=== PATIENT | female | born 1970 | race African-American/Black ===

== ENCOUNTER 2016-12-16 14:58 | Inpatient (IN) | payer OTHER ==
[2016-12-16 15:09] VITALS: BMI 22.3
[2016-12-16 15:28] LABS: BASOPHIL 0.3 % (0-2.0); EOSINOPHIL 0.1 % (0-4.5); MCH 29.7 pg (25.7-33.7); MCHC 32.7 g/dl (32.0-36.0); MEAN CELL VOLUME 90.6 fl (80-96); MEAN PLT VOLUME 9.2 fl (7.5-11.1); PLATELET COUNT 285 K/MM3 (134-434); WHITE BLOOD COUNT 5.8 K/mm3 (4.0-10.0)
--- NOTE | 2016-12-16 15:39 | PDOC ---
History of Present Illness - General Chief Complaint: Palpitations Stated Complaint: Irregular Heart RATE Time Seen by Provider: 12/16/16 15:10 - History of Present Illness Initial Comments: 12/16/16 15:34 46 yo F with h/o GERD who presents with tachycardia. Pt. reports attending [facility] appointment with Dr.Frederick Emery for scheduled colonoscopy. Following administration of anesthetic at 1300 she experienced elevated HR of 200's, and EKG at [facility] revealed A-fib w/ RVR. She did not undergo colonoscopy. Received Ranitidine and Atenolol at outpatient GI. Also endorses experiencing palpitations following sedation. States that she can feel "heart pounding in chest." Endorses recurrent lightheaded spells for the past four weeks with no triggers or alleviating symptoms. lightheadedness is usually transient, 3-4 times/week, lasting minutes , and resolves spontaneously. Accompanied with nausea. Patient endorses oral bowel prep/Miralax at 1600 ( 12/15/16) prior to colonoscopy, with subsequent clear liquid diet. + single episode of clear, non bloody, emesis and diarrhea following bowel prep. Reports seeing PCP Dr. Christensen and receiving Ranitidine with follow up at [facility] for outpatient colonoscopy. Denies any associated chest pain, vomiting, fevers/chills, SOB, leg swelling, abdominal pain. Denies h/o afib, palpitations, or tachycardia. Past History - Past Medical History Allergies/Adverse Reactions: Allergies Allergy/AdvReac Type Severity Reaction Status Date / Time Penicillins Allergy Verified 12/16/16 15:08 Home Medications: Ambulatory Orders Doxycycline Hyclate [Targadox] 50 mg PO BID 12/16/16 Famotidine [Pepcid] 20 mg PO BID 12/16/16 GI Disorders: Yes (GERD) - Surgical History Appendectomy: Yes - Psycho/Social/Smoking Cessation Hx Suicidal Ideation: No Smoking History: Current every day smoker Number of Cigarettes Smoked Daily: 5 Information on smoking cessation initiated: No Review of Systems - Review of Systems Comments:: 12/16/16 16:44 GENERAL/CONSTITUTIONAL: No fever or chills. No weakness. HEAD, EYES, EARS, NOSE AND THROAT: No change in vision. No ear pain or discharge. No sore throat. CARDIOVASCULAR: +Palpitations. No chest pain or shortness of breath RESPIRATORY: No cough, wheezing, or hemoptysis. GASTROINTESTINAL: No nausea, vomiting, diarrhea or constipation. GENITOURINARY: No dysuria, frequency, or change in urination. MUSCULOSKELETAL: No joint or muscle swelling or pain. No neck or back pain. SKIN: No rash NEUROLOGIC: No headache, vertigo, loss of consciousness, or change in strength/ sensation. ENDOCRINE: No increased thirst. No abnormal weight change HEMATOLOGIC/LYMPHATIC: No anemia, easy bleeding, or history of blood clots. ALLERGIC/IMMUNOLOGIC: No hives or skin allergy *Physical Exam - Vital Signs Last Vital Signs Temp Pulse Resp BP Pulse Ox 97.8 F 90 16 129/68 97 12/17/16 15:00 12/17/16 15:00 12/17/16 15:00 12/17/16 15:00 12/17/16 09:00 - Physical Exam Comments: 12/16/16 16:45 GENERAL: Awake, alert, and fully oriented, in no acute distress HEAD: No signs of trauma, normocephalic, atraumatic EYES: PERRLA, EOMI, sclera anicteric, conjunctiva clear ENT: Auricles normal inspection, hearing grossly normal, nares patent, oropharynx clear without exudates. Moist mucosa NECK: Normal ROM, supple, no lymphadenopathy, JVD, or masses LUNGS: No distress, speaks full sentences, clear to auscultation bilaterally HEART: Irregular rate and rhtyhm, normal S1 and S2, no murmurs, rubs or gallops , peripheral pulses normal and equal bilaterally. ABDOMEN: Soft, nontender, normoactive bowel sounds. No guarding, no rebound. No masses EXTREMITIES: Normal inspection, Normal range of motion, no edema. No clubbing or cyanosis. NEUROLOGICAL: :Pt. is tremulous. Cranial nerves II through XII grossly intact. Normal speech, normal gait, no focal sensorimotor deficits SKIN: Warm, Dry, normal turgor, no rashes or lesions noted. Heart Score/ECG Review - History History: Slightly suspicious - Electrocardiogram EKG: Non specific repolarization disturbance - Age Age: 45-65 - Risk Factors Risk Factors Heart Score: No Hx Hypercholesterolemia, No Hx Hypertension, No Hx Diabetes, Yes Smoking History, Yes Positive family hx of cardiac disease, No Hx Obesity Based on the list above the patient has:: 1-2 risk factors - Troponin Troponin: 1-3x normal limit - Score Heart Score - Total: 4 - ECG Intrepretation Rhythm: Irregularly Irregular - [place]: Normal - P and ME Delta Wave(s) Present: No WPW: No - QRS Q Wave Present: No - ST and T Early Repolarization: No Non Specific ST-T Wave changes: Yes - ECG Impressions Normal ECG: No Non-specific ST Elevation: No Tachycardia: Afib w/rapid Vent rate Torsades mahnaz Pointes: No WPW: No ED Treatment Course - LABORATORY CBC & Chemistry Diagram: 12/17/16 06:05 12/17/16 06:05 - ADDITIONAL ORDERS Additional order review: 12/16/16 15:20 RBC 4.10 MCV 90.6 MCHC 32.7 RDW 13.0 MPV 9.2 Neutrophils % 38.0 L Lymphocytes % 49.2 H Monocytes % 12.4 H Eosinophils % 0.1 Basophils % 0.3 - RADIOLOGY Radiology Studies Ordered: Category Date Time Status CXRPORT [CHEST X-RAY PORTABLE*] [RAD] Stat Radiology 12/16/16 15:53 Completed - Medications Given in the ED: ED Medications Discontinued Medications Generic Name Dose Route Start Last Admin Trade Name Freq PRN Reason Stop Dose Admin Aspirin 325 mg 12/16/16 17:07 12/16/16 17:13 Ecotrin - PO 12/16/16 17:08 325 mg ONCE ONE Administration Sodium Chloride 1,000 mls @ 1,000 mls/hr 12/16/16 16:31 12/16/16 16:40 Normal Saline - IV 12/16/16 17:30 1,000 mls/hr ASDIR STA Administration Sodium Chloride 1,000 mls @ 1,000 mls/hr 12/16/16 17:03 12/16/16 17:05 Normal Saline - IV 12/16/16 18:02 1,000 mls/hr ASDIR STA Administration Sodium Chloride 1,000 mls @ 100 mls/hr 12/16/16 20:45 12/17/16 09:06 Normal Saline - IV 100 mls/hr ASDIR ARNULFO Administration Methimazole 20 mg 12/17/16 10:00 12/17/16 09:04 Tapazole - PO 20 mg BID ARNULFO Administration Metoprolol Tartrate 25 mg 12/16/16 18:27 12/16/16 18:41 Lopressor - PO 12/16/16 18:28 25 mg ONCE ONE Administration Metoprolol Tartrate 5 mg 12/16/16 18:27 12/16/16 18:41 Lopressor Injection - IVPUSH 12/16/16 18:28 5 mg ONCE ONE Administration Propranolol HCl 40 mg 12/16/16 22:00 12/17/16 09:04 Inderal - PO 40 mg BID ARNULFO Administration Medical Decision Making - Medical Decision Making 12/16/16 15:58 46 yo F with h/o GERD who presents with tachycardia. Recent episode of A-fib with RVR in setting of colonoscopy pre-op with Dr. Deangelo Emery at [facility]. Following administration of anesthetic at 1300 she experienced elevated HR of 200's, with subsequent afib with rapid ventricular rate confirmed on EKG. Did not undergo colonoscopy. Received Adenosine and Atenolol. Has been experiencing transient, and recurrent palpitations, lightheadedness for past 4 weeks. Physical exam reveals irregular rhythm. HR (106-150) Reports vomiting and diarrhea following PO intake of bowel prep/mirilax at 1600 ( 12/16/16) night prior to colonoscopy. DDx: A-fib, dehydration, A-flutter ACS/HI ED Course: EKG: Afib with rvr ( 121), and t wave depression in inferior and anterolateral leads. CBC, CMP, Trop, BNP, PT/INR, APTT UA CXR NS 1 L 12/16/16 16:25 Trop-0.06 12/16/16 16:36 Heart Score: 4, 13 % risk MACE 12/16/16 16:39 INR-1.19 325 mg ASA Admit to Dr. Palmer Inpatient HR 106-140 Lopressor IV 5 mg, Lopressor 25 mg PO *DC/Admit/Observation/Transfer Diagnosis at time of Disposition: Atrial fibrillation with rapid ventricular response, Palpitations - Discharge Dispostion Admit: Yes - Attestations Physician Attestion: 12/16/16 16:46 I, Dr. Fabian Finney, attest that this document has been prepared under my direction and personally reviewed by me in its entirety. I further attest, that it accurately reflects all work, treatment, procedures and medical decision -making performed by me.
[2016-12-16 15:53] LABS: TROPONIN I 0.06 ng/ml (0.00-0.05)
[2016-12-16 16:01] LABS: ALBUMIN 3.3 g/dl (3.4-5.0); ANION GAP 10 (8-16); CALCIUM 10.4 mg/dL (8.5-10.1); CO2 24 mmol/L (21-32); CREATININE 0.4 mg/dL (0.55-1.02); GLUCOSE,RANDOM 118 mg/dL (74-106); SGPT/ALT 62 U/L (12-78)
[2016-12-16 16:02] LABS: ALK PHOS 121 U/L (45-117); BILIRUBIN,TOTAL 0.5 mg/dL (0.2-1.0); TOT PROT 6.4 g/dl (6.4-8.2)
[2016-12-16 16:05] LABS: SGOT/AST 54 U/L (15-37)
[2016-12-16 16:06] LABS: CPK 103 IU/L (26-192)
[2016-12-16 16:31] LABS: INR 1.19 (0.82-1.09); PROTHROMBIN TIME (PATIENT) 13.1 SEC (9.98-11.88)
[2016-12-16] MEDS ORDERED: SODIUM CHLORIDE 1,000 ML IV STA ×2 (16:31→17:03)
--- NOTE | 2016-12-16 16:32 | PDOC ---
Attending Attestation - Resident Resident Name: Fabian Finney - [facility] HPI: 12/16/16 16:28 The patient is a 46 year old female, with a significant past medical history of GERD, who presents to the emergency department s/p elevated HR during colonoscopy. The patient was scheduled for a colonoscopy with , which was never performed secondary to elevated HR to 203 after the anesthesia was given. Her only symptom at the time was palpitations. At that point, she was given adenosine and then atenolol and told to come to the ED for further management. Last night, patient reports she completed the prep for the colonoscopy and had innumerable loose NB bowel movements overnight.. She denies recent fevers, chills, headache or dizziness. She denies recent nausea, vomit, diarrhea or constipation. She denies recent dysuria, frequency, urgency or hematuria. She denies chest pain or shortness of breath. Allergies: NKA Past surgical history: None reported. Social history: Nonsmoker. Denies EtOH use and recreational drug use. - Physicial Exam PE: 12/16/16 16:28 GENERAL/CONSTITUTIONAL: No fever or chills. No weakness. HEAD, EYES, EARS, NOSE AND THROAT: No change in vision. No ear pain or discharge. No sore throat. CARDIOVASCULAR: +elevated HR. + palpitationsNo chest pain or shortness of breath. RESPIRATORY: No cough, wheezing, or hemoptysis. GASTROINTESTINAL: No nausea, vomiting, diarrhea or constipation. GENITOURINARY: No dysuria, frequency, or change in urination. MUSCULOSKELETAL: No joint or muscle swelling or pain. No neck or back pain. SKIN: No rash NEUROLOGIC: No headache, vertigo, loss of consciousness, or change in strength/ sensation. ENDOCRINE: No increased thirst. No abnormal weight change. HEMATOLOGIC/LYMPHATIC: No anemia, easy bleeding, or history of blood clots. ALLERGIC/IMMUNOLOGIC: No hives or skin allergy. - Medical Decision Making 12/16/16 16:28 46-year-old female who denies significant past medical history presents in A. fib/A flutter with a rate of 203 after receiving anesthesia for her colonoscopy. The patient was given adenosine and atenolol by her report at the GI office and then told to come to the emergency department for further management. The patient she is in A. fib with a rate between 100s -120s. Likely etiology is fluid shifts and/or dehydration from the colonoscopy prep. Will rehydrate patient and monitor. Patient may need admission for monitoring. -labs -cxr -ivf -monitor -call PMD 12/16/16 17:26 Labs remarkable for small troponin leak of 0.06, likely demand in the setting of tachycardia. Patient is receiving liter #2, currently heart rate continues to range between the high 90s and the 120s. If heart rate does not respond to 2 L of fluid, will consider IV metoprolol if blood pressure permits. Will admit to hospital for further monitoring and trending of troponins.
[2016-12-16] MEDS ORDERED: ASPIRIN 325 MG ENTERIC COATED TABLET (FP) PO ONE (17:07)
[2016-12-16] MEDS ORDERED: ASPIRIN 325 MG ENTERIC COATED TABLET (FP) ONE (17:13)
[2016-12-16 17:17] LABS: URINE APPEARANCE SLCLOUDY; URINE BILIRUBIN NEGATIVE (NEGATIVE); URINE BLOOD NEGATIVE (NEGATIVE); URINE COLOR YELLOW; URINE GLUCOSE (UA) NEGATIVE (NEGATIVE); URINE KETONE NEGATIVE (NEGATIVE); URINE LEUK ESTERASE NEGATIVE (NEGATIVE); URINE NITRITE NEGATIVE (NEGATIVE); URINE PROTEIN NEGATIVE (NEGATIVE); URINE UROBILINOGEN NEGATIVE mg/dL (0.2-1.0)
--- NOTE | 2016-12-16 17:34 | CON.CARD ---
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 Last week she had an endoscopy without incident. Today (12/16/16) she was to have a colonoscopy. She completed her prep and received an anesthetic and then went into rapid afib at 200 BPM. EKG shows rapid afib at 121 BPM with normal QRS intervals, normal QRS axis and NSSTTW changes. [id number] Score = 1 (female) - Smoking History Smoking history: Current every day smoker Aproximately how many cigarettes per day: 5 Home Medications - Allergies Allergies/Adverse Reactions: Allergies Allergy/AdvReac Type Severity Reaction Status Date / Time Penicillins Allergy Verified 12/16/16 15:08 - Home Medications Home Medications: Ambulatory Orders Famotidine [Pepcid] 20 mg PO BID 12/16/16 Review of Systems Unable to obtain ROS, reason: As per HPI Vital Signs: Vital Signs Temperature Pulse Rate 120 H 12/16/16 15:59 Respiratory Rate 22 12/16/16 15:59 Blood Pressure 108/64 12/16/16 15:59 O2 Sat by Pulse Oximetry (%) 100 12/16/16 15:59 Constitutional: Yes: No Distress HENT: Yes: Other (? 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 Today (12/16/16) she was to have a colonoscopy. She completed her prep and received an anesthetic and then went into rapid afib at 200 BPM. EKG shows rapid afib at 121 BPM with normal QRS intervals, normal QRS axis and NSSTTW changes. [id number] Score = 1 (female) New onset AFIB No need to AC given the low [id number] Score, would given aspirin 325 mg daily Obtain TFT's Obtain an echocardiogram Admit to telem Would rate control with metoprolol tartrate 25 mg PO Q12h Bp is 108/64 mmHg and would hole if BP is less than 100 mmHg systolic If she has not spontaneously converted to NSR by tomorrow, will consider transferring to [facility] for cardioversion.
--- NOTE | 2016-12-16 17:43 | HP ---
Admitting History and Physical - Admission Chief Complaint: Afib with RVR History of Present Illness: 46 yr old woman with GERD, history of gastric ulcer referred by Dr. Emery for rapid afib with RVR post-anesthesia during preparation for scheduled colonoscopy. Following anesthesia (patient described it as white and milky, likely propofol) HR increased to 200's, EKG at the time reported as A-fib with RVR to ED. Last night during bowel prep with miralax and colace she had multiple bowel movement and episodes of vomiting. Also endorses unintentional weightloss in past few months. Sees her doctor regularly for physicals with no reports of abnormal EKG's or lab work. denies hx of thyroid dysfunction in self, HTN, DM, cardiac hx, difficulty swallowing, sob, chest pain, abdominal pain, changes in vision, diplopia. Patient has had anesthesia in the past for appendectomy and knee replacement with no adverse reaction to anesthesia.Underwent endoscopy last week with the same Anesthesiologist, in the same location and anesthesia without any adverse event, was told the endoscopy was normal with the gastric ulcer now healed. She had changed her diet to a bland diet for past few months for the ulcer. fmhx: cousin had a thyroidectomy as a child. History Source: Patient Limitations to Obtaining History: No Limitations - Smoking History Smoking history: Current every day smoker Aproximately how many cigarettes per day: 5 Home Medications - Allergies Allergies/Adverse Reactions: Allergies Allergy/AdvReac Type Severity Reaction Status Date / Time Penicillins Allergy Verified 12/16/16 15:08 - Home Medications Home Medications: Ambulatory Orders Famotidine [Pepcid] 20 mg PO BID 12/16/16 Review of Systems - Review of Systems Constitutional: reports: Loss of Appetite Eyes: denies: Eye Pain, Recent Change in Vision HENT: denies: Difficult Swallowing Neck: denies: Decreased ROM, Pain on Movement, Tenderness Cardiovascular: denies: Chest Pain Respiratory: denies: Cough, SOB Gastrointestinal: denies: Abdominal Pain Endocrine: reports: Unexplained Weight Loss Physical Examination Vital Signs: Vital Signs Temperature Pulse Rate 120 H 12/16/16 15:59 Respiratory Rate 22 12/16/16 15:59 Blood Pressure 108/64 12/16/16 15:59 O2 Sat by Pulse Oximetry (%) 100 12/16/16 15:59 Constitutional: Yes: Anxious Eyes: Yes: Conjunctiva Clear, EOM Intact, Other (right eye upper lateral eyelid with swelling, no erythema/discharge. b/l proptosis) HENT: Yes: Atraumatic, Normocephalic Neck: Yes: Supple, Trachea Midline, Thyromegaly. No: Decreased ROM, Tenderness Cardiovascular: Yes: Tachycardia, Pulse Irregular, S1, S2. No: Murmur Respiratory: Yes: Regular, CTA Bilaterally. No: Cough Gastrointestinal: Yes: Normal Bowel Sounds, Soft Extremities: Yes: Other (mild tremor with stretched hands) Edema: No Peripheral Pulses WNL: Yes Neurological: Yes: Alert, Oriented, Cran Nerves II-XII Intact. No: Facial Droop Psychiatric: Yes: Alert, Oriented Labs: CBC, BMP 12/16/16 15:20 12/16/16 15:20 Assessment/Plan 46 yr old woman with history of gastric ulcer, GERD, presents in afib with RVR post-anesthesia, with TSH level <.01, concern for thyroid dysfunction. #Afib with RVR - repeat Trops, lipid profile, echo in the AM to r/o ACS, tele monitoring and repeat EKG in the AM - likely from thyroid dysfunction given low TSH, pending T3 and T4 - propranolol 40mg po bid changed from metoprolol - IVF NS @100cc/hr for hydration given NPO status and bowel prep last night #thyroid dysfunction - given thyromegaly, weightloss, tachycardia - TSH level <.01, pending T3 and T4 - may need endocrine consult and thyroid u/s #GERD - ranitidine 150mg po daily DVT 5000 units heparin SQ BID diet: regular Visit type - Emergency Visit Emergency Visit: Yes ED Registration Date: 12/16/16 Care time: The patient presented to the Emergency Department on the above date and was hospitalized for further evaluation of their emergent condition. - New Patient This patient is new to me today: Yes Date on this admission: 12/16/16 - Critical Care Critical Care patient: No
[2016-12-16] MEDS ORDERED: METOPROLOL TARTRATE 5 MG/5 ML VIAL IVPUSH PRN (18:12)
[2016-12-16] MEDS ORDERED: METOPROLOL TARTRATE 5 MG/5 ML VIAL IVPUSH ONE (18:27)
[2016-12-16] MEDS ORDERED: METOPROLOL TARTRATE 25 MG TABLET (FP) PO ONE (18:27)
--- NOTE | 2016-12-16 18:28 | HP ---
CHIEF COMPLAINT: Tachycardia PCP: Unsure HISTORY OF PRESENT ILLNESS: 46 year old F with pmh of GERD presented to the ED with tachycardia. Patient was at her GI's office for a routine colonoscopy. Patient was given anaesthetic and found to be tachycardic to the 200's. Patient unsure what anaesthetic was given, but was confident it was a white colored fluid. Patient has a 2 month history of GERD. She takes pepcid with minimal relief. She underwent an endoscopy, which she was told was normal. She states that she has lost 7-10 lbs this week. Patient wants to go home immediately. Patient has no cardiac history and has never been worked up for cardiac disease in the past. ER course was notable for: (1)CXR- (2)Labs (3)EKG- Afib Recent Travel: denies PAST MEDICAL HISTORY: GERD PAST SURGICAL HISTORY: Appendectomy and knee surgery- no issues with anaesthetic during these procedures Social History: Smoking: Patient quit smoking 1 week ago. Only smoked <1 cigarettes per day Alcohol: 1 drink/month Drugs: Denies Family History: Allergies Penicillins Allergy (Verified 12/16/16 15:08) HOME MEDICATIONS: Home Medications Medication Instructions Recorded Famotidine [Pepcid] 20 mg PO BID 12/16/16 REVIEW OF SYSTEMS CONSTITUTIONAL: Absent: fever, chills, diaphoresis, generalized weakness, malaise, loss of appetite, weight change HEENT: Absent: rhinorrhea, nasal congestion, throat pain, throat swelling, difficulty swallowing, mouth swelling, ear pain, eye pain, visual changes CARDIOVASCULAR: Absent: chest pain, syncope, palpitations, irregular heart rate, lightheadedness , peripheral edema RESPIRATORY: Absent: cough, shortness of breath, dyspnea with exertion, orthopnea, wheezing, stridor, hemoptysis GASTROINTESTINAL: Absent: abdominal pain, abdominal distension, nausea, vomiting, diarrhea, constipation, melena, hematochezia GENITOURINARY: Absent: dysuria, frequency, urgency, hesitancy, hematuria, flank pain, genital pain MUSCULOSKELETAL: Absent: myalgia, arthralgia, joint swelling, back pain, neck pain SKIN: Absent: rash, itching, pallor HEMATOLOGIC/IMMUNOLOGIC: Absent: easy bleeding, easy bruising, lymphadenopathy, frequent infections ENDOCRINE: Absent: unexplained weight gain, unexplained weight loss, heat intolerance, cold intolerance NEUROLOGIC: Absent: headache, focal weakness or paresthesias, dizziness, unsteady gait, seizure, mental status changes, bladder or bowel incontinence PSYCHIATRIC: Absent: anxiety, depression, suicidal or homicidal ideation, hallucinations. PHYSICAL EXAMINATION Vital Signs - 24 hr 12/16/16 12/16/16 12/16/16 15:06 15:36 15:59 Pulse Rate 140 H Pulse Rate [ 124 H 120 H Apical] Respiratory 20 20 22 Rate Blood Pressure 148/90 Blood Pressure 149/90 108/64 [Right Arm] O2 Sat by Pulse 99 98 100 Oximetry (%) 12/16/16 18:10 Pulse Rate Pulse Rate [ 114 H Apical] Respiratory 18 Rate Blood Pressure Blood Pressure 120/65 [Right Arm] O2 Sat by Pulse 96 Oximetry (%) GENERAL: Awake, alert, and fully oriented, in no acute distress. Patient is anxious/tremulous HEAD: Normal with no signs of trauma. EYES: Pupils equal, round and reactive to light, extraocular movements intact, sclera anicteric, conjunctiva clear. + proptosis EARS, NOSE, THROAT: Ears normal, nares patent, oropharynx clear without exudates. Moist mucous membranes. NECK: Normal range of motion, supple without lymphadenopathy, JVD, or masses. + thyromegaly LUNGS: Breath sounds equal, clear to auscultation bilaterally. No wheezes, and no crackles. No accessory muscle use. HEART: Irregularly Irregular, normal S1 and S2 without murmur, rub or gallop. ABDOMEN: Soft, nontender, not distended, normoactive bowel sounds, no guarding, no rebound, no masses. No hepatomegaly or splenomegaly. MUSCULOSKELETAL: Normal range of motion at all joints. No bony deformities or tenderness. No CVA tenderness. UPPER EXTREMITIES: 2+ pulses, warm, well-perfused. No cyanosis. No clubbing. No peripheral edema. LOWER EXTREMITIES: 2+ pulses, warm, well-perfused. No calf tenderness. No peripheral edema. NEUROLOGICAL: Cranial nerves II-XII intact. Normal speech. Normal gait. PSYCHIATRIC: Cooperative. Good eye contact. Appropriate mood and affect. SKIN: Warm, dry, normal turgor, no rashes or lesions noted, normal capillary refill. Laboratory Results - last 24 hr 12/16/16 12/16/16 12/16/16 15:12 15:20 15:20 WBC 5.8 RBC 4.10 Hgb 12.2 Hct 37.2 MCV 90.6 MCH 29.7 MCHC 32.7 RDW 13.0 Plt Count 285 MPV 9.2 Neutrophils % 38.0 L Lymphocytes % 49.2 H Monocytes % 12.4 H Eosinophils % 0.1 Basophils % 0.3 INR 1.19 H PTT (Actin FS) Sodium Cancelled Potassium Cancelled Chloride Cancelled Carbon Dioxide Cancelled Anion Gap Cancelled BUN Cancelled Creatinine Cancelled Creat Clearance w eGFR Cancelled Random Glucose Cancelled Calcium Cancelled Total Bilirubin Cancelled AST Cancelled ALT Cancelled Alkaline Phosphatase Cancelled Creatine Kinase Troponin I Total Protein Cancelled Albumin Cancelled Urine Color Urine Appearance Urine pH Urine Protein Urine Glucose (UA) Urine Ketones Urine Blood Urine Nitrite Urine Bilirubin Urine Urobilinogen Ur Leukocyte Esterase 12/16/16 12/16/16 12/16/16 15:20 15:20 17:00 WBC RBC Hgb Hct MCV MCH MCHC RDW Plt Count MPV Neutrophils % Lymphocytes % Monocytes % Eosinophils % Basophils % INR PTT (Actin FS) 32.9 Sodium 141 Potassium 4.6 Chloride 107 Carbon Dioxide 24 Anion Gap 10 BUN 15 Creatinine 0.4 L Creat Clearance w eGFR > 60 Random Glucose 118 H Calcium 10.4 H Total Bilirubin 0.5 AST 54 H ALT 62 Alkaline Phosphatase 121 H Creatine Kinase 103 Troponin I 0.06 H Total Protein 6.4 Albumin 3.3 L Urine Color Yellow Urine Appearance Slcloudy Urine pH 5.0 Urine Protein Negative Urine Glucose (UA) Negative Urine Ketones Negative Urine Blood Negative Urine Nitrite Negative Urine Bilirubin Negative Urine Urobilinogen Negative Ur Leukocyte Esterase Negative ASSESSMENT/PLAN: 46 year old F with pmh of GERD presented to the ER from GI clinic for tachycardia and new onset atrial fibrillation. #Atrial Fibrillation with RVR- 2/2 to dehydration vs hypothyroidism Patient admitted to telemetry [employer] Patient received adenosine and atenolol at GI clinic Start metoprolol IV 5 mg PRN for HR control (<120) Echo pending TSH ordered Troponin elevated. Repeat ordered Cardiology consulted, Dr. Holguin #Thyromegaly TSH pending Will f/u #GERD Ranitdine 150 mg PO daily #ppx DVT- Heparin 5000 units sq BID GI- Ranitidine 150 mg PO daily Visit type - Emergency Visit Emergency Visit: Yes ED Registration Date: 12/16/16 Care time: The patient presented to the Emergency Department on the above date and was hospitalized for further evaluation of their emergent condition. - New Patient This patient is new to me today: Yes Date on this admission: 12/16/16 - Critical Care Critical Care patient: No
--- NOTE | 2016-12-16 18:32 | PN ---
Teaching Attending Note Name of Resident: Pedro White ATTENDING PHYSICIAN STATEMENT I saw and evaluated the patient. I reviewed the resident's note and discussed the case with the resident. I agree with the resident's findings and plan as documented. SUBJECTIVE:46yo F sent from GI office when found to be tachycardic to 200's. pt was going for routine colonoscopy and received anesthesia (describes it as white fluid in the syringe) and then found to be tachycardic. states she completed her bowel prep yesterday and was having copious amounts of loose BM to the point she was "pooping water". pt currently is asymptomatic and wants to go home. states she been having GERD-like symptoms for 2 months was started on pepcid with some relief. Underwent EGD last week and was told it was normal. admits to 7-10lbs weight loss this week. denies CP, palpitations, SOB, fever, chills, recent infections, heat/cold intolerance, hair loss, dysphagia or odynophagia or anxiety. no medication use other than pepcid (OTC or herbal medicatioN) no weight loss supplements quit smoking tobacco last week but states she was only a "social smoker" who never completed a full cigarette never had cardiac workup in the past states her thyroid was checked last month and was normal drinks 1 glass/wine per month denies THC, cocaine or illegal substance use. OBJECTIVE: Last Vital Signs Temp Pulse Resp BP Pulse Ox 120 H 22 108/64 100 12/16/16 15:59 12/16/16 15:59 12/16/16 15:59 12/16/16 15:59 General mildly anxious HEENT + mild proptosis +thyromegaly, moves with degluttation, no nodules CV S1 S2 irregular irregular, tachy Lungs CTA B/L no wheezing/rales/rhonchi ABdomen soft NT/ND Extremities no pedal edema, skin on arms are smooth and hairless ASSESSMENT AND PLAN: 46yo F with PMH GERD sent to the ER after found to be in afib with RVR 1. Afib with RVR- tele admission. likely induced from dehydration however concern for hyperthyroid given clinical signs. continuous cardiac monitoring. received adenosine and atenolol in the GI office. HR currently 100-115 on the monitor after IVF. will give metoprolol IVP prn for HR >120. check echo, TSH. cardio eval. [id number] 1- does not require anticoagulation at this time. trend cardiac enzymes, serial ekgs. 2. thyromegaly- appreciated on my exam. awaiting TSH level. if normal will need thyroid u/s as outpatient 3. GERD- cont pepcid 4. DVT ppx- EAM
[2016-12-16] MEDS ORDERED: METOPROLOL TARTRATE 5 MG/5 ML VIAL ONE (18:37)
[2016-12-16] MEDS ORDERED: METOPROLOL TARTRATE 25 MG TABLET (FP) ONE (18:37)
[2016-12-16] MEDS: HEPARIN NA (PORCINE) 5,000 UNITS/ML 1ML VIAL SQ SCH (22:20)
[2016-12-16] MEDS: PROPRANOLOL HCL 40 MG TABLET PO SCH (22:20)
[2016-12-16] MEDS: SODIUM CHLORIDE 1,000 ML IV SCH (22:39)
[2016-12-16 23:08] LABS: CHOLESTEROL 103 mg/dL (50-200); LDL CHOLESTEROL (ONLY SJRH) 52 mg/dL (5-100)
[2016-12-17 07:58] LABS: BASOPHIL 0.3 % (0-2.0); MCH 29.5 pg (25.7-33.7); MCHC 32.7 g/dl (32.0-36.0); MEAN CELL VOLUME 90.3 fl (80-96); MEAN PLT VOLUME 9.3 fl (7.5-11.1); NEUTROPHILS 31.4 % (42.8-82.8); PLATELET COUNT 241 K/MM3 (134-434); RDW 13.2 % (11.6-15.6); WHITE BLOOD COUNT 5.2 K/mm3 (4.0-10.0)
[2016-12-17] MEDS: PROPRANOLOL HCL 40 MG TABLET PO SCH (09:04)
[2016-12-17] MEDS: HEPARIN NA (PORCINE) 5,000 UNITS/ML 1ML VIAL SQ SCH ×2 (09:04→21:37)
[2016-12-17] MEDS: RANITIDINE HCL 150 MG TABLET (FP) PO SCH (09:05)
[2016-12-17] MEDS: SODIUM CHLORIDE 1,000 ML IV SCH (09:06)
[2016-12-17] MEDS ORDERED: METHIMAZOLE 10 MG TABLET (FP) PO SCH (10:00)
[2016-12-17 10:05] LABS: ALBUMIN 3.3 g/dl (3.4-5.0); BILIRUBIN,TOTAL 0.5 mg/dL (0.2-1.0); CALCIUM 10.3 mg/dL (8.5-10.1); CREATININE 0.3 mg/dL (0.55-1.02); GLUCOSE,RANDOM 82 mg/dL (74-106); SGOT/AST 92 U/L (15-37); THYROID STIMULATING HORMONE < 0.01 uIU/ml (0.358-3.74); TOT PROT 5.9 g/dl (6.4-8.2)
[2016-12-17 10:45] LABS: ALK PHOS 128 U/L (45-117); ANION GAP 8 (8-16); CO2 22 mmol/L (21-32); SGPT/ALT 96 U/L (12-78)
--- NOTE | 2016-12-17 13:25 | CONSULT ---
Consult Consult Specialty:: Endocrinology Referred by:: Dr Post Reason for Consultation:: Hyperthyroidism - History of Present Illness Chief Complaint: Palpitations History of Present Illness: This is a 46 year old F with h/o GERD presented to the ED after patient developted tachycardia while getting anesthesia for a routine colonoscopy in her GI's office.. Pt gives history of wt loss of around 50 lbs in the last 4 months with accompanying symptoms of palpitations, tremors of hands, increased sweating, heat intolerance. Family h/o thyroid disorder in aunt. - History Source History Provided By: Patient, Medical Record - Smoking History Smoking history: Current every day smoker Aproximately how many cigarettes per day: 5 Home Medications - Allergies Allergies/Adverse Reactions: Allergies Allergy/AdvReac Type Severity Reaction Status Date / Time Penicillins Allergy Verified 12/16/16 15:08 - Home Medications Home Medications: Ambulatory Orders Doxycycline Hyclate [Targadox] 50 mg PO BID 12/16/16 Famotidine [Pepcid] 20 mg PO BID 12/16/16 Family Disease History - Family Disease History Other Family History: Aunt: thyroid disorder Review of Systems - Review of Systems Constitutional: reports: Unintentional Wgt. Loss Eyes: reports: No Symptoms HENT: reports: No Symptoms Neck: reports: No Symptoms Cardiovascular: reports: Palpitations Respiratory: reports: No Symptoms Gastrointestinal: reports: No Symptoms Genitourinary: reports: No Symptoms Breasts: reports: No Symptoms Reported Musculoskeletal: reports: No Symptoms Integumentary: reports: Other (Increased sweating) Neurological: reports: No Symptoms Endocrine: reports: Excessive Sweating, Intolerance to Heat, Unexplained Weight Loss Physical Exam Vital Signs: Vital Signs Temperature 97.9 F 12/17/16 00:00 Pulse Rate 104 H 12/17/16 06:00 Respiratory Rate 20 12/17/16 06:00 Blood Pressure 157/70 12/17/16 06:00 O2 Sat by Pulse Oximetry (%) 97 12/17/16 09:00 Constitutional: Yes: No Distress, Calm Eyes: Yes: Conjunctiva Clear, EOM Intact HENT: Yes: Atraumatic, Normocephalic Neck: Yes: Supple, Trachea Midline, Thyromegaly, Other (Bruit over the thyroid) Cardiovascular: Yes: Tachycardia Respiratory: Yes: Regular, CTA Bilaterally Gastrointestinal: Yes: Normal Bowel Sounds, Soft Musculoskeletal: Yes: WNL Extremities: Yes: Other (fine tremors of hands) Edema: No Neurological: Yes: Alert, Oriented Labs: CBC, BMP 12/17/16 06:05 12/17/16 06:05 Problem List - Problems (1) Atrial fibrillation with rapid ventricular response Code(s): I48.91 - UNSPECIFIED ATRIAL FIBRILLATION (2) Palpitations Code(s): R00.2 - PALPITATIONS Assessment/Plan HYperthyroidism: New onset A Fib Elevated LFT's Hypercalcemia Hyperglycemia Pt started on Methimazole 20mg BID Will decrease to 10 mg BID for now in view of increased LFTs. Elevated LFT's most probably secondary to hyperthyroidism and should normalize with treatment. However, Methimazole can cause hepatitis, so will need to monitor LFTs closely. If it worsens would need to consider stopping it and treating her with RadioIodine. Discussed with patient treatment options including thionamides, ALFARO and surgery and that we will try Methimazole for now but we may have to stop it if the LFTs worsen. Also discussed rare risk of Neutropenia with the medication. Pt verbalizes understanding. Hypercalcemia and hyperglycemia probably secondary to hyperthyroidism. W/U if they persist after the hyperthyroidism is controlled. Will f/u
--- NOTE | 2016-12-17 14:18 | PN ---
Teaching Attending Note Name of Resident: Pedro White ATTENDING PHYSICIAN STATEMENT I saw and evaluated the patient. I reviewed the resident's note and discussed the case with the resident. I agree with the resident's findings and plan as documented. SUBJECTIVE:states she feels much improved. does not feel any palpitations, CP, SOB, fever, chills, cough, N/V/C/D, dysphgia OBJECTIVE: Last Vital Signs Temp Pulse Resp BP Pulse Ox 97.9 F 104 H 20 157/70 97 12/17/16 00:00 12/17/16 06:00 12/17/16 06:00 12/17/16 06:00 12/17/16 09:00 General mildly anxious CV S1 S2 tachy Lungs CTA B/L no wheezing/rales/rhonchi ASSESSMENT AND PLAN: 46yo F with PMH GERD sent to the ER after found to be in afib with RVR 1. Afib with RVR-rate controlled. on metoprolol. due to hyperthyroidism exacerbated in setting of dehydration. rate improved with IVF. metoprolol switched to propanolol? however rate is controlled. will switch to atenolol for the AM which will be easier for compliance given daily dosing and B1 selectivity. echo pending. cardio on board. 2. Thyrotoxicosis- TSH <0.001 and T4 >8. T3 pending. started on methimazole. will need to monitor liver functions closely as already elevated. if they start to increase will need to consider ALFARO. autoimmune workup pending. endo consulted. trend T4. 3. Acute transaminitis- lilkely due to hyperthyroid. check hepatitis panel 4. GERD- cont pepcid 5. DVT ppx- hep sq
--- NOTE | 2016-12-17 15:34 | EKG ---
Test Reason : Blood Pressure : / mmHG Vent. Rate : 121 BPM Atrial Rate : 441 BPM P-R Int : 000 ms QRS Dur : 082 ms QT Int : 302 ms P-R-T Axes : 000 072 -82 degrees QTc Int : 428 ms ATRIAL FIBRILLATION WITH RAPID VENTRICULAR RESPONSE MINIMAL VOLTAGE CRITERIA FOR LVH, MAY BE NORMAL VARIANT T WAVE ABNORMALITY, CONSIDER INFERIOR ISCHEMIA T WAVE ABNORMALITY, CONSIDER ANTEROLATERAL ISCHEMIA ABNORMAL ECG NO PREVIOUS ECGS AVAILABLE Confirmed by SUDEEP SCHMID, JESSICA ([id number]) on 12/17/2016 3:33:48 PM Referred By: Confirmed By:JESSICA SHEETS MD
--- NOTE | 2016-12-17 16:04 | PN ---
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 Today (12/16/16) she was to have a colonoscopy. She completed her prep and received an anesthetic and then went into rapid afib at 200 BPM. EKG shows rapid afib at 121 BPM with normal QRS intervals, normal QRS axis and NSSTTW changes. [id number] Score = 1 (female) TSH <0.01, T4 >8.00 12/17/16 Now in NSR - Current Medication List Current Medications: Active Medications Atenolol (Tenormin -) 25 mg PO DAILY [facility] Heparin Sodium (Porcine) (Heparin -) 5,000 unit SQ BID [facility] Last Admin: 12/17/16 09:04 Dose: 5,000 unit Methimazole (Tapazole -) 10 mg PO BID [facility] Ranitidine HCl (Zantac -) 150 mg PO DAILY [facility] Last Admin: 12/17/16 09:05 Dose: 150 mg - Objective Vital Signs: Vital Signs Temperature 97.8 F 12/17/16 15:00 Pulse Rate 90 12/17/16 15:00 Respiratory Rate 16 12/17/16 15:00 Blood Pressure 129/68 12/17/16 15:00 O2 Sat by Pulse Oximetry (%) 97 12/17/16 09:00 Constitutional: Yes: Thin Cardiovascular: Yes: Regular Rate and Rhythm Respiratory: Yes: WNL Gastrointestinal: Yes: Soft Extremities: Yes: WNL Edema: No Neurological: Yes: Alert, Oriented (Non focal) Psychiatric: Yes: WNL Labs: CBC, BMP 12/17/16 06:05 12/17/16 06:05 INR, PTT INR 1.19 (0.82-1.09) H 12/16/16 15:12 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 Today (12/16/16) she was to have a colonoscopy. She completed her prep and received an anesthetic and then went into rapid afib at 200 BPM. Initially EKG shows rapid afib at 121 BPM with normal QRS intervals, normal QRS axis and NSSTTW changes. [id number] Score = 1 (female) New onset AFIB/Spontaneously converted to NSR No need to AC given the low [id number] Score, would given aspirin 325 mg daily Obtain an echocardiogram Continue: Atenolol (Tenormin -) 25 mg PO DAILY [facility] Heparin Sodium (Porcine) (Heparin -) 5,000 unit SQ BID [facility] Last Admin: 12/17/16 09:04 Dose: 5,000 unit Methimazole (Tapazole -) 10 mg PO BID [facility] Ranitidine HCl (Zantac -) 150 mg PO DAILY [facility] Last Admin: 12/17/16 09:05 Dose: 150 mg
--- NOTE | 2016-12-17 16:19 | PN ---
Physical Exam: SUBJECTIVE: Patient seen and examined No acute events overnight. Patient feels good this morning. Wants to go home. OBJECTIVE: Vital Signs Period Temp Pulse Resp BP Sys/Mccarthy Pulse Ox Last 24 Hr 97.4 F-97.9 F 87-114 16-20 110-157/43-81 96-100 GENERAL: Awake, alert, and fully oriented, in no acute distress. Patient is anxious/tremulous HEAD: Normal with no signs of trauma. EYES: Pupils equal, round and reactive to light, extraocular movements intact, sclera anicteric, conjunctiva clear. + proptosis EARS, NOSE, THROAT: Ears normal, nares patent, oropharynx clear without exudates. Moist mucous membranes. NECK: Normal range of motion, supple without lymphadenopathy, JVD, or masses. + thyromegaly LUNGS: Breath sounds equal, clear to auscultation bilaterally. No wheezes, and no crackles. No accessory muscle use. HEART: Regular rate and rhythm, normal S1 and S2 without murmur, rub or gallop. ABDOMEN: Soft, nontender, not distended, normoactive bowel sounds, no guarding, no rebound, no masses. No hepatomegaly or splenomegaly. MUSCULOSKELETAL: Normal range of motion at all joints. No bony deformities or tenderness. No CVA tenderness. UPPER EXTREMITIES: 2+ pulses, warm, well-perfused. No cyanosis. No clubbing. No peripheral edema. LOWER EXTREMITIES: 2+ pulses, warm, well-perfused. No calf tenderness. No peripheral edema. NEUROLOGICAL: Cranial nerves II-XII intact. Normal speech. Normal gait. PSYCHIATRIC: Cooperative. Good eye contact. Appropriate mood and affect. SKIN: Warm, dry, normal turgor, no rashes or lesions noted, normal capillary refill. Laboratory Results - last 24 hr 12/16/16 12/16/16 12/16/16 19:30 19:43 21:57 WBC RBC Hgb Hct MCV MCH MCHC RDW Plt Count MPV Neutrophils % Lymphocytes % Monocytes % Eosinophils % Basophils % Sodium Potassium Chloride Carbon Dioxide Anion Gap BUN Creatinine Creat Clearance w eGFR Random Glucose Calcium Total Bilirubin AST ALT Alkaline Phosphatase Troponin I 0.04 Total Protein Albumin Triglycerides Cholesterol Total LDL Cholesterol HDL Cholesterol TSH Free T4 > 8.00 H Urine HCG, Qual Negative 12/16/16 12/17/16 12/17/16 21:57 06:05 06:05 WBC 5.2 RBC 3.61 Hgb 10.7 D Hct 32.6 MCV 90.3 MCH 29.5 MCHC 32.7 RDW 13.2 Plt Count 241 MPV 9.3 Neutrophils % 31.4 L Lymphocytes % 53.1 H Monocytes % 14.2 H Eosinophils % 1.0 D Basophils % 0.3 Sodium 141 Potassium 4.4 Chloride 111 H Carbon Dioxide 22 Anion Gap 8 BUN 16 Creatinine 0.3 L D Creat Clearance w eGFR > 60 Random Glucose 82 D Calcium 10.3 H Total Bilirubin 0.5 AST 92 H D ALT 96 H D Alkaline Phosphatase 128 H Troponin I Total Protein 5.9 L Albumin 3.3 L Triglycerides 49 Cholesterol 103 Total LDL Cholesterol 52 HDL Cholesterol 43 TSH < 0.01 L Free T4 Urine HCG, Qual Active Medications Generic Name Dose Route Start Last Admin Trade Name Freq PRN Reason Stop Dose Admin Atenolol 25 mg 12/18/16 10:00 Tenormin - PO DAILY [facility] Heparin Sodium (Porcine) 5,000 unit 12/16/16 22:00 12/17/16 09:04 Heparin - SQ 5,000 unit BID ARNULFO Administration Methimazole 10 mg 12/17/16 13:56 Tapazole - PO BID ARNULFO Ranitidine HCl 150 mg 12/17/16 10:00 12/17/16 09:05 Zantac - PO 150 mg DAILY ARNULFO Administration ASSESSMENT/PLAN: 46 year old F with pmh of GERD presented to the ER from GI clinic for tachycardia and new onset atrial fibrillation. 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 Repeat ordered Cardiology consulted, Dr. Holguin #Thyrotoxicosis TSH <0.01, T4>8 T3 pending Start MMI 10 mg BID Monitor LFTs Autoantibodies pending Trend T4 #GERD Ranitdine 150 mg PO daily #ppx DVT- Heparin 5000 units sq BID GI- Ranitidine 150 mg PO daily Visit type - Emergency Visit Emergency Visit: No - New Patient This patient is new to me today: No - Critical Care Critical Care patient: No
[2016-12-17] MEDS: ASPIRIN 325 MG TABLET PO SCH (17:55)
[2016-12-17] MEDS: METHIMAZOLE 10 MG TABLET (FP) PO SCH (21:37)
[2016-12-18 07:49] LABS: BASOPHIL 0.5 % (0-2.0); EOSINOPHIL 2.3 % (0-4.5); MCH 29.4 pg (25.7-33.7); MCHC 32.8 g/dl (32.0-36.0); MEAN CELL VOLUME 89.6 fl (80-96); MEAN PLT VOLUME 9.3 fl (7.5-11.1); NEUTROPHILS 26.2 % (42.8-82.8); PLATELET COUNT 216 K/MM3 (134-434); WHITE BLOOD COUNT 5.1 K/mm3 (4.0-10.0)
[2016-12-18 08:42] LABS: ALBUMIN 3.1 g/dl (3.4-5.0); ALK PHOS 117 U/L (45-117); ANION GAP 7 (8-16); BILIRUBIN,TOTAL 0.6 mg/dL (0.2-1.0); CALCIUM 9.4 mg/dL (8.5-10.1); CO2 27 mmol/L (21-32); CREATININE 0.2 mg/dL (0.55-1.02); GLUCOSE,RANDOM 77 mg/dL (74-106); SGOT/AST 80 U/L (15-37); SGPT/ALT 114 U/L (12-78); THYROID STIMULATING HORMONE < 0.01 uIU/ml (0.358-3.74); TOT PROT 5.5 g/dl (6.4-8.2)
[2016-12-18 08:57] LABS: FREE T4 7.12 ng/dl (0.76-1.46)
[2016-12-18] MEDS: ASPIRIN 325 MG TABLET PO SCH (09:00)
[2016-12-18] MEDS: HEPARIN NA (PORCINE) 5,000 UNITS/ML 1ML VIAL SQ SCH (09:00)
[2016-12-18] MEDS: METHIMAZOLE 10 MG TABLET (FP) PO SCH (09:01)
[2016-12-18] MEDS: RANITIDINE HCL 150 MG TABLET (FP) PO SCH (09:01)
[2016-12-18 09:02] LABS: URINE MARIJUANA THC POSITIVE ng/ml (CUTOFF=50)
[2016-12-18] MEDS ORDERED: ATENOLOL 25 MG TABLET (FP) PO SCH (10:00)
[2016-12-18 10:06] VITALS: PULSE 78
--- NOTE | 2016-12-18 11:30 | PN ---
Progress Note (short form) - Note Progress Note: Feels better today Still has fine tremors of hand Sinus rhythm Vital Signs Period Temp Pulse Resp BP Sys/Mccarthy Pulse Ox Last 24 Hr 97.7 F-98.4 F 78-92 16-20 108-145/56-70 97-98 PE: AOx3 Neck: Supple, No JVD, + TM +Bruit HEENT: PERRL, EOMI Lungs: CTA Abd: Benign CVS: s1S2 Ext: No edema, fine tremors of hands Neuro: No focal deficit CMP Sodium 143 mmol/L (136-145) 12/18/16 05:50 Potassium 3.9 mmol/L (3.5-5.1) 12/18/16 05:50 Chloride 109 mmol/L (98-107) H 12/18/16 05:50 Carbon Dioxide 27 mmol/L (21-32) D 12/18/16 05:50 Anion Gap 7 (8-16) L 12/18/16 05:50 BUN 13 mg/dL (7-18) 12/18/16 05:50 Creatinine 0.2 mg/dL (0.55-1.02) L D 12/18/16 05:50 Creat Clearance w eGFR > 60 (>60) 12/18/16 05:50 Random Glucose 77 mg/dL (74-106) 12/18/16 05:50 Calcium 9.4 mg/dL (8.5-10.1) 12/18/16 05:50 Total Bilirubin 0.6 mg/dL (0.2-1.0) 12/18/16 05:50 AST 80 U/L (15-37) H 12/18/16 05:50 ALT 114 U/L (12-78) H 12/18/16 05:50 Alkaline Phosphatase 117 U/L (45-117) 12/18/16 05:50 Creatine Kinase 103 IU/L (26-192) 12/16/16 15:20 Troponin I 0.04 ng/ml (0.00-0.05) 12/16/16 21:57 Total Protein 5.5 g/dl (6.4-8.2) L 12/18/16 05:50 Albumin 3.1 g/dl (3.4-5.0) L 12/18/16 05:50 Triglycerides 49 mg/dL (35-160) 12/16/16 21:57 Cholesterol 103 mg/dL (50-200) 12/16/16 21:57 Total LDL Cholesterol 52 mg/dL (5-100) 12/16/16 21:57 HDL Cholesterol 43 mg/dL (40-60) 12/16/16 21:57 TSH < 0.01 uIU/ml (0.358-3.74) L 12/18/16 05:50 Free T4 7.12 ng/dl (0.76-1.46) H D 12/18/16 05:50 Total T3 > 651.00 ng/dl (71-180) H 12/16/16 19:43 CBC WBC 5.1 K/mm3 (4.0-10.0) 12/18/16 05:50 RBC 3.42 M/mm3 (3.60-5.2) L 12/18/16 05:50 Hgb 10.1 GM/dL (10.7-15.3) L 12/18/16 05:50 Hct 30.6 % (32.4-45.2) L 12/18/16 05:50 MCV 89.6 fl (80-96) 12/18/16 05:50 MCH 29.4 pg (25.7-33.7) 12/18/16 05:50 MCHC 32.8 g/dl (32.0-36.0) 12/18/16 05:50 RDW 13.0 % (11.6-15.6) 12/18/16 05:50 Plt Count 216 K/MM3 (134-434) 12/18/16 05:50 MPV 9.3 fl (7.5-11.1) 12/18/16 05:50 Neutrophils % 26.2 % (42.8-82.8) L 12/18/16 05:50 Lymphocytes % 56.2 % (8-40) H 12/18/16 05:50 Monocytes % 14.8 % (3.8-10.2) H 12/18/16 05:50 Eosinophils % 2.3 % (0-4.5) D 12/18/16 05:50 Basophils % 0.5 % (0-2.0) 12/18/16 05:50 Current Medications Generic Name Dose Route Start Last Admin Trade Name Freq PRN Reason Stop Dose Admin Aspirin 325 mg 12/17/16 16:15 12/18/16 09:00 Asa - PO 325 mg DAILY ARNULFO Administration Atenolol 25 mg 12/18/16 10:00 12/18/16 09:01 Tenormin - PO 25 mg DAILY ARNULFO Administration Heparin Sodium (Porcine) 5,000 unit 12/16/16 22:00 12/18/16 09:00 Heparin - SQ 5,000 unit BID ARNULFO Administration Methimazole 10 mg 12/17/16 13:56 12/18/16 09:01 Tapazole - PO 10 mg BID ARNULFO Administration Ranitidine HCl 150 mg 12/17/16 10:00 12/18/16 09:01 Zantac - PO 150 mg DAILY ARNULFO Administration AP: HYperthyroidism: New onset A Fib: sinus now Elevated LFT's: Stable Hypercalcemia: resolved Hyperglycemia: resolved Continue Methimazole 10 mg BID for now in view of increased LFTs. Slight improvement in FT4. Elevated LFT's most probably secondary to hyperthyroidism and should normalize with treatment. However, Methimazole can cause hepatitis, so will need to monitor LFTs closely. If it worsens would need to consider stopping it and treating her with RadioIodine. Discussed with patient treatment options including thionamides, ALFARO and surgery and that we will try Methimazole for now but we may have to stop it if the LFTs worsen. Also discussed rare risk of Neutropenia with the medication. Pt verbalizes understanding. Pt may be discharged from Endocrine perspective. Pt should follow up in the office on Wednesday. Repeat TFT and LFT tomorrow if pt is still in the hospital. Dr. Hill covering me this weekend. Problem List - Problems (1) Atrial fibrillation with rapid ventricular response Code(s): I48.91 - UNSPECIFIED ATRIAL FIBRILLATION (2) Palpitations Code(s): R00.2 - PALPITATIONS
--- NOTE | 2016-12-18 12:41 | PN ---
Teaching Attending Note Name of Resident: Pedro White ATTENDING PHYSICIAN STATEMENT I saw and evaluated the patient. I reviewed the resident's note and discussed the case with the resident. I agree with the resident's findings and plan as documented. SUBJECTIVE:states she feels less anxious today. denies CP, palpitations, N/V/C/D , dysphagia OBJECTIVE: Last Vital Signs Temp Pulse Resp BP Pulse Ox 97.7 F 78 18 145/70 98 12/18/16 10:00 12/18/16 10:00 12/18/16 10:00 12/18/16 10:00 12/18/16 09:00 General NAD CV S1 S2 RRR no murmur/rub/gallop Lungs CTA B/L no wheezing/rales/rhonchi ASSESSMENT AND PLAN: 46yo F with PMH GERD sent to the ER after found to be in afib with RVR 1. Afib with RVR-now in NSR. HR controlled. on atenolol. echo WNL. cardio on board. 2. Thyrotoxicosis-clinically appears improved. less anxious. T4 trended down to 7. on methimazole 10mg BID. will need to have close follow up with endo for frequent lab checks and monitoring of LFT. appt to follow up on wednesday (12/22). ab pending. endo on board. 3. Acute transaminitis- lilkely due to hyperthyroid. stable and not worsening on methimazole. hepatitis panel pending 4. GERD- cont pepcid 5. DVT ppx- hep sq
[2016-12-18 14:37] VITALS: BP 139/75; TEMP 98
--- NOTE | 2016-12-18 14:53 | PN ---
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 Today (12/16/16) she was to have a colonoscopy. She completed her prep and received an anesthetic and then went into rapid afib at 200 BPM. Initial EKG shows rapid afib at 121 BPM with normal QRS intervals, normal QRS axis and NSSTTW changes. [id number] Score = 1 (female) TSH <0.01, T4 >8.00 Spontaneously converted to NSR Echocardiogram 12/17/16 EF 66%. Normal LV size and funciton. Normal RV size and function. Mild MR, trace TR. 12/18/16 Remains in NSR - Current Medication List Current Medications: Active Medications Aspirin (Asa -) 325 mg PO DAILY [facility] Last Admin: 12/18/16 09:00 Dose: 325 mg Atenolol (Tenormin -) 25 mg PO DAILY [facility] Last Admin: 12/18/16 09:01 Dose: 25 mg Heparin Sodium (Porcine) (Heparin -) 5,000 unit SQ BID [facility] Last Admin: 12/18/16 09:00 Dose: 5,000 unit Methimazole (Tapazole -) 10 mg PO BID [facility] Last Admin: 12/18/16 09:01 Dose: 10 mg Ranitidine HCl (Zantac -) 150 mg PO DAILY [facility] Last Admin: 12/18/16 09:01 Dose: 150 mg - Objective Vital Signs: Vital Signs Temperature 98 F 12/18/16 14:35 Pulse Rate 78 12/18/16 14:35 Respiratory Rate 18 12/18/16 14:35 Blood Pressure 139/75 12/18/16 14:35 O2 Sat by Pulse Oximetry (%) 98 12/18/16 09:00 Constitutional: Yes: No Distress, Thin Neck: Yes: WNL, Thyromegaly Cardiovascular: Yes: Regular Rate and Rhythm, S1, S2 (No MRHG) Respiratory: Yes: CTA Bilaterally Gastrointestinal: Yes: Soft Extremities: Yes: WNL Edema: No Neurological: Yes: Alert, Oriented (Nonfocal) Psychiatric: Yes: WNL Labs: CBC, BMP 12/18/16 05:50 12/18/16 05:50 INR, PTT INR 1.19 (0.82-1.09) H 12/16/16 15:12 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 Today (12/16/16) she was to have a colonoscopy. She completed her prep and received an anesthetic and then went into rapid afib at 200 BPM. Initially EKG shows rapid afib at 121 BPM with normal QRS intervals, normal QRS axis and NSSTTW changes. [id number] Score = 1 (female) New onset AFIB/Spontaneously converted to NSR No need to AC given the low [id number] Score, Continue: Atenolol (Tenormin -) 25 mg PO DAILY ARNULFO Methimazole (Tapazole -) 10 mg PO BID ARNULFO
--- NOTE | 2016-12-18 16:30 | DS ---
Physical Exam: LABS Selected Entries 12/16/16 12/17/16 12/18/16 15:06 06:00 02:05 Pulse Rate 140 H 104 H 91 H Blood Pressure 148/90 108/57 12/18/16 14:35 Pulse Rate 78 Blood Pressure 139/75 Laboratory Tests 12/16/16 12/16/16 12/16/16 13:20 15:20 19:43 AST ALT Alkaline Phosphatase Troponin I 0.06 H TSH < 0.01 L Free T4 > 8.00 H Free T3 Total T3 U Marijuana (THC) Screen Hepatitis A IgM Ab Hep Bs Antigen Hep B Core IgM Ab Hepatitis C Ab (EIA) 12/16/16 12/16/16 12/17/16 19:43 21:57 03:00 AST ALT Alkaline Phosphatase Troponin I 0.04 TSH Free T4 Free T3 Total T3 > 651.00 H U Marijuana (THC) Screen Positive Hepatitis A IgM Ab Hep Bs Antigen Hep B Core IgM Ab Hepatitis C Ab (EIA) 12/17/16 12/18/16 12/18/16 06:05 05:50 05:50 AST 92 H D 80 H ALT 96 H D 114 H Alkaline Phosphatase 128 H Troponin I TSH < 0.01 L < 0.01 L Free T4 7.12 H D Free T3 22.6 H Total T3 U Marijuana (THC) Screen Hepatitis A IgM Ab Hep Bs Antigen Hep B Core IgM Ab Hepatitis C Ab (EIA) 12/18/16 05:50 AST ALT Alkaline Phosphatase Troponin I TSH Free T4 Free T3 Total T3 U Marijuana (THC) Screen Hepatitis A IgM Ab Negative Hep Bs Antigen Negative Hep B Core IgM Ab Negative Hepatitis C Ab (EIA) <0.1 EKG- Atrial Fibrillation with RVR Echocardiogram- Negative for any pathology \ HOSPITAL COURSE: Date of Admission:12/16/16 Date of Discharge: 12/18/16 46 year old F with pmh of GERD presented to the ED with tachycardia. Patient was at her GI's office for a routine colonoscopy. Patient was given anaesthetic and found to be tachycardic to the 200's. Patient found to have new onset atrial fibrillation. Patient had significant thyromegaly on examination. Labs above. Patient was admitted for A fib with RVR and thyrotoxicosis. Patient placed on rate control with atenolol and treated with methimazole for her thyrotoxicosis. Her symptoms improved and she converted to NSR from A fib. She improved clinically as well. Patient was discharged wt close follow up with endocrinology on WednesdayDecember 22. Minutes to complete discharge: 45 Discharge Summary Reason For Visit: ATRIAL FIBRILATION WITH RAPID VENTRICULAR RESPONSE Current Active Problems Atrial fibrillation with rapid ventricular response (Acute) GERD (gastroesophageal reflux disease) (Acute) Thyrotoxicosis (Acute) Condition: Improved - Instructions Diet, Activity, Other Instructions: You were in the hospital due to an abnormal heart rhythm and rate. In addition you had high thyroid function. Please follow up with your primary care provider in 1 week. Please follow up with the polisher balance screwhead on Wednesday. A referral has been provided for you. You will need close monitoring of your labs and thyroid function Please follow up with your associate team physician in 1-2 weeks. Continue the following medications: -Pepcid 20 mg by mouth twice per day Start taking the following medication, your outpatient doctors will adjust these medications as necessary: -Methimazole 10 mg by mouth two times per day -Aspirin 325 mg by mouth daily -Atenolol 25 mg by mouth daily If you have any chest pain, shortness of breath, or any new symptoms please come back to the hospital immediately. Referrals: Ubaldo Holguin MD [Staff Physician] - Ozzy Myrick MD [Staff Physician] - Disposition: HOME - Home Medications Comprehensive Discharge Medication List: Ambulatory Orders Famotidine [Pepcid] 20 mg PO BID 12/16/16 Aspirin [ASA -] 325 mg PO DAILY tablet 12/18/16 Atenolol [Tenormin -] 25 mg PO DAILY #30 tablet 12/18/16 Methimazole [Tapazole -] 10 mg PO BID #60 tablet 12/18/16 This patient is new to me today: No Emergency Visit: No Critical Care patient: No - Discharge Referral Referred to [facility] Med [facility] No
[2016-12-19 06:11] LABS: FREE T3 22.6 pg/mL (2.0-4.4)
== END 2016-12-18 18:08 | disposition home or self-care (01) | DRG 920 ==
LOC: JER 14:58 → JERBED 18:04 → J4W 20:35
PROVIDERS: ADMIT Internal Medicine; ATTEND Internal Medicine
DX: T81.89XA Other complications of procedures, not elsewhere classified, initial encounter (principal); I48.92 Unspecified atrial flutter; I48.91 Unspecified atrial fibrillation; K21.9 Gastro-esophageal reflux disease without esophagitis; F17.210 Nicotine dependence, cigarettes, uncomplicated; E86.0 Dehydration; E01.0 Iodine-deficiency related diffuse (endemic) goiter; E05.80 Other thyrotoxicosis without thyrotoxic crisis or storm; E83.52 Hypercalcemia; R73.9 Hyperglycemia, unspecified; R74.0 Nonspecific elevation of levels of transaminase and lactic acid dehydrogenase [LDH]; R00.2 Palpitations; Y84.8 Other medical procedures as the cause of abnormal reaction of the patient, or of later complication, without mention of misadventure at the time of the procedure; Y92.89 Other specified places as the place of occurrence of the external cause; Z96.659 Presence of unspecified artificial knee joint
CPT/HCPCS: 36415; 71010-TC; 80053; 80061; 80074; 80307; 81003; 83721; 84439; 84443; 84445; 84480; 84481; 84484; 84703; 85025; 85610; 85730; 93005; 93010; 93306-TC; 99285-25; J1644

== ENCOUNTER 2021-12-29 12:03 | Emergency (ER) | payer OTHER ==
[2021-12-29 12:24] VITALS: BP 127/85; PULSE 67; RESP 16; TEMP 97.9; BMI 26.7
[2021-12-29] MEDS ORDERED: LIDOCAINE HCL 2% (50ML VIAL) INF ONE (12:31)
[2021-12-29] MEDS ORDERED: LIDOCAINE HCL 2% (20ML MULTI-DOSE VIAL) ONE (12:33)
== END 2021-12-29 14:11 | disposition home or self-care (01) ==
LOC: FER 12:03
DX: L03.011 Cellulitis of right finger (principal)
CPT/HCPCS: 99283-25